=== PATIENT | female | born 1985 | race American Indian/Alaskan Native ===

== ENCOUNTER 2019-06-02 08:43 | Outpatient (CLI) | payer MEDICAID | END 2019-06-02 08:44 | disposition home or self-care (01) | LOC: LABHHL 08:43 | PROVIDERS: ATTEND Surgery | DX: N60.01 Solitary cyst of right breast (principal); E66.9 Obesity, unspecified; F17.200 Nicotine dependence, unspecified, uncomplicated; Z72.89 Other problems related to lifestyle | CPT/HCPCS: 88112 ==

== ENCOUNTER 2019-06-15 10:23 | Outpatient (CLI) | payer MEDICAID ==
--- NOTE | 2019-06-16 11:25 | Mammography Report ---
BILATERAL DIGITAL DIAGNOSTIC MAMMOGRAM WITH CAD -- 06/15/2019 RIGHT COMPLETE BREAST ULTRASOUND INDICATION: History of cysts and drainage of 5 cysts 2 weeks ago. F/U abnormal mammogram TECHNIQUE: Digital bilateral mammographic imaging was performed. Magnification views were obtained. Complete ultrasound of all four (4) quadrants was performed. This examination was interpreted with vel cross benefit of Computer-Aided Detection (CAD) analysis. COMPARISON: None. FINDINGS: Breast Density: There are scattered areas of fibroglandular density. MAMMOGRAPHIC FINDINGS: Oval circumscribed low-density right upper outer mass persists on a spot MLO m agnification view. No architectural distortion or suspicious calcifications of the right breast. Ther e is no evidence of dominant mass, suspicious calcifications or architectural distortion in the left breast. ULTRASOUND FINDINGS: Complete sonographic evaluation of all 4 quadrants and retroareolar region was p erformed. Ultrasound of the right breast demonstrated no solid mass or suspicious shadowing. An irr egular retroareolar cyst at 12:00 measures 9 x 5 x 4 mm and probably correlates with the recently albino ined cyst. A slightly irregular cyst at 12:00 4 cm from the nipple measures 4 mm. A complex cyst at 1 :00 9 cm from the nipple measures 5 x 4 x 4 mm. A complex cyst at 1:00 8 cm from the nipple measures 5 x 4 x 4 mm. A complex cyst at 9:00 5 cm from the nipple measures 5 x 6 x 5 mm. An irregular complex cyst at 11:00 5 cm from the nipple measures 12 x 3 x 10 mm and probably correlates with a recently d rained cyst. IMPRESSION: Probably benign cysts and no suspicious finding of the right breast. Recommend 6 month fo llow-up right breast ultrasound to reevaluate the lesions identified on this exam. Negative left jv st. Recommend routine mammographic screening of the left breast. Follow up recommendation: Short term follow up in 6 months. BI-RADS Category 3: Probably Benign. Followup in 6 months. A "normal" or negative report should not discourage follow up or biopsy of a clinically significant f inding. A written summary of these findings will be mailed to the patient. The patient will be entered into a mammography reporting system which will generate a reminder letter for the patient's next appointmen t at the appropriate interval. According to the [employer], yearly mammograms are recommended starting at age 40 and continuing as long as a woman is in good health. Breast MRI is recommended for women with an west roximately 20-25% or greater lifetime risk of breast cancer, including women with a strong family his tory of breast or ovarian cancer and women who have been treated for Hodgkin's disease. Signer Name: Marlon Youssef MD Signed: 06/16/2019 11:21 AM Workstation Name: [id number]
== END 2019-06-15 10:24 | disposition home or self-care (01) ==
LOC: SPVWC 10:23
PROVIDERS: ATTEND Surgery
DX: R92.8 Other abnormal and inconclusive findings on diagnostic imaging of breast (principal)
CPT/HCPCS: 77066